=== PATIENT | female | born 1965 | race Caucasian/White ===

== ENCOUNTER 2016-08-24 09:40 | Emergency (ER) | payer OTHER ==
[2016-08-24 09:50] VITALS: TEMP 98; O2SAT 97; BMI 38.7
--- NOTE | 2016-08-24 10:11 | ED PDOC ---
Addendum entered and electronically signed by Rolando Healy PA-C 08/24/16 11:24: Addendum Addendum: 08/24/16 11:24 There was no antihypertensive medication given in the ER. Original Note: Arrival/HPI - General Historian: Patient - General Chief Complaint: Dizziness/Lightheaded Time Seen by Provider: 08/24/16 10:00 - History of Present Illness Narrative History of Present Illness (Text): 08/24/16 10:04 51 y/o female, pmh including dm, nkda, post menopausal, c/o feeling headache and dizziness about 2-3 hours ago. Pt. stated that she doesn't feel well today with headache, admits fatigue, and under the weather. Pt. was at the [employer] and trying to get up, feeling dizziness with room spinning sensation which turn into headache with no fall or trauma. Pt. stated that the dizziness resolved but the rt. lateral headache still remains, no change in vision, no numbness or tingling, no palpitation, no chest pain or shortness of breath, no night sweat, no other medical or psychological complaints. (Rolando Healy) Past Medical History - Provider Review Nursing Documentation Reviewed: Yes - Infectious Disease Hx of Infectious Diseases: None - Reproductive Menopause: Yes - Cardiac Hx Cardiac Disorders: No - Pulmonary Hx Respiratory Disorders: No - Neurological Hx Neurological Disorder: No - Renal Hx Renal Disorder: No - Endocrine/Metabolic Hx Endocrine Disorders: Yes Hx Diabetes Mellitus Type 2: Yes - Hematological/Oncological Hx Blood Disorders: No - Integumentary Hx Dermatological Disorder: No - Musculoskeletal/Rheumatological Hx Musculoskeletal Disorders: No - Gastrointestinal Hx Gastrointestinal Disorders: No - Genitourinary/Gynecological Hx Genitourinary Disorders: Yes Other/Comment: endometriosis. - Psychiatric Hx Psychophysiologic Disorder: No Hx Substance Use: No - Surgical History Hx Dilation and Curettage: Yes (x2) Hx Gastric Bypass Surgery: Yes - Anesthesia Hx Anesthesia: Yes Hx Anesthesia Reactions: No Family/Social History - Physician Review Nursing Documentation Reviewed: Yes Family/Social History: Unknown Family HX Smoking Status: Never Smoked Hx Alcohol Use: No Hx Substance Use: No Allergies/Home Meds Allergies/Adverse Reactions: Allergies No Known Allergies Allergy (Verified 08/24/16 09:45) Home Medications: Home Meds Medication Instructions Recorded Confirmed MetFORMIN [glucoPHAGE] 1,000 mg PO DAILY 08/24/16 08/24/16 Review of Systems - Review of Systems Constitutional: Fatigue. absent: Fevers Eyes: absent: Vision Changes ENT: absent: Hearing Changes Respiratory: absent: SOB, Cough Cardiovascular: absent: Chest Pain Gastrointestinal: absent: Abdominal Pain, Nausea, Vomiting Neurological: Headache, Dizziness. absent: Focal Weakness, Gait Changes, Speech Changes, Facial Droop, Disequilibrium, Seizure Physical Exam Vital Signs Reviewed: Yes Temperature: Afebrile Blood Pressure: Hypertensive Pulse: Regular Respiratory Rate: Normal Appearance: Positive for: Well-Appearing, Non-Toxic, Comfortable Pain Distress: None Mental Status: Positive for: Alert and Oriented X 3 - Systems Exam Head: Present: Atraumatic, Normocephalic. No: Tenderness, Contusion, Swelling, Ecchymosis, Abrasion, Laceration, Other Pupils: Present: PERRL Extroacular Muscles: Present: EOMI Conjunctiva: Present: Normal Ears: Present: NORMAL TM, Normal Canal. No: Erythema Mouth: Present: Moist Mucous Membranes Pharnyx: No: ERYTHEMA, EXUDATE, TONSILS ENLARGED, Uvular Deviation, Soft Palate/ Uvular Edema Neck: Present: Normal Range of Motion, Trachea Midline. No: Meningeal Signs, MIDLINE TENDERNESS, Paraspinal Tenderness, Lymphadenopathy Respiratory/Chest: Present: Clear to Auscultation, Good Air Exchange. No: Respiratory Distress, Accessory Muscle Use, Wheezes, Decreased Breath Sounds, Rales, Retracting, Rhonchi, Tachypneic, Tender to Palpation, Other Cardiovascular: Present: Regular Rate and Rhythm, Normal S1, S2. No: Murmurs Abdomen: Present: Normal Bowel Sounds. No: Tenderness, Distention, Peritoneal Signs, Rebound, Guarding Back: Present: Normal Inspection Upper Extremity: Present: Normal Inspection. No: Cyanosis, Edema Lower Extremity: Present: Normal Inspection. No: Edema Neurological: Present: GCS=15, CN II-XII Intact, Speech Normal, Motor Func Grossly Intact, Gait Normal, Memory Normal, Other (no drift, normal finger to nose test, normal gait and posture, no focal neurological deficits, no drift. ) Skin: Present: Warm, Dry, Normal Color. No: Rashes Psychiatric: Present: Alert, Oriented x 3, Normal Insight, Normal Concentration Medical Decision Making - Lab Interpretations I have reviewed the lab results: Yes Interpretation: Abnormal lab values (+UTI and +yeast) - RAD Interpretation Accounting Auditor: Radiologist - EKG Interpretation Interpreted by ED Physician: Yes Type: 12 lead EKG Comparison: No previous EKG avail. ED Course and Treatment: 08/24/16 10:05 -labs -CT head -IVF/reglan -Observe and reassess 08/24/16 11:15 -EKG: NSR @ 74 BPM, no St elevation or depression, no T wave inversion. -CT Head: no acute intracranial pathology identified. -Labs are non-significant -UA show +UTI and +Yeast, Diflucan 150mg po ordered. -Labs and radiology results reviewed with the patient. -Pt. feels completely relief with headache resolved after the IV reglan and IVF , no dizziness, walking with normal gait and posture, no slurred speech. -Discharge home with macrobid, meclizine, stay hydrated, bed rest, no gym or exercise until clear by your own pmd, follow your with your own pmd and neurologist within 2 days, return to the ER for any new or worsening signs or symptoms. (Rolando Healy) I was available for consultation during PA evaluation. The chart was reviewed by me, and I agree with disposition. The documented history was done by the physician penal officer. The documented physical exam was done by the physician penal officer. The documented procedures were done by the physician penal officer. (Dougie Saucedo) - Lab Interpretations Lab Results: 08/24/16 10:38 08/24/16 10:38 Lab Results 08/24/16 10:42: Urine Color Yellow, Urine Appearance Clear, Urine pH 6.0, Ur Specific [place] 1.010, Urine Protein Negative, Urine Glucose (UA) Negative, Urine Ketones Negative, Urine Blood Negative, Urine Nitrate Positive H, Urine Bilirubin Negative, Urine Urobilinogen 0.2, Ur Leukocyte Esterase Negative, Urine RBC 0 - 2, Urine WBC 0 - 2, Ur Epithelial Cells 1 - 3, Amorphous Sediment Few, Urine Bacteria Many, Urine Other Uyeast 08/24/16 10:38: Sodium 140, Potassium 4.3, Chloride 104, Carbon Dioxide 30, Anion Gap 10, BUN 10, Creatinine 0.6, Est GFR ( Amer) > 60, Est GFR (Non- Af Amer) > 60, Random Glucose 106, Calcium 9.6, Total Bilirubin 0.3, AST 36, ALT 40, Alkaline Phosphatase 67, Total Protein 7.6, Albumin 4.2, Globulin 3.4, Albumin/Globulin Ratio 1.2 08/24/16 10:38: WBC 4.6 D, RBC 4.27, Hgb 11.2 L, Hct 35.7 L, MCV 83.6, MCH 26.2 , MCHC 31.4, RDW 15.1 H, Plt Count 258, MPV 9.8, Gran % 55.6, Lymph % (Auto) 35.8 H, [place] % (Auto) 6.3 H, Eos % (Auto) 1.7, Baso % (Auto) 0.6, Gran # 2.58, Lymph # 1.7, [place] # 0.3, Eos # 0.1, Baso # 0.03 08/24/16 10:31: POC Glucose (mg/dL) 111 H - RAD Interpretation Radiology Orders: 08/24/16 10:12 HEAD W/O CONTRAST [CT] Stat NO acute intracranial pathology identified. (Rolando Healy) - EKG Interpretation EKG Interpretation (Text): 08/24/16 10:31 NSR @ 74 BPM, no St elevation or depression, no T wave inversion. (Rolando Healy) - Medication Orders Current Medication Orders: Discontinued Medications Fluconazole (Diflucan) 150 mg PO DAILY KHADAR PRN Reason: Protocol Last Admin: 08/24/16 11:36 Dose: 150 mg Sodium Chloride (Sodium Chloride 0.9%) 1,000 mls @ 250 mls/hr IV .Q4H STA Stop: 08/24/16 14:11 Last Admin: 08/24/16 10:29 Dose: 250 mls/hr Metoclopramide HCl (Reglan) 10 mg IVP STAT STA Stop: 08/24/16 10:13 Last Admin: 08/24/16 10:29 Dose: 10 mg - PA / [employer] SUPERVISOR / Resident Statement /DO has reviewed & agrees with the documentation as recorded. Disposition/Present on Arrival - Present on Arrival Any Indicators Present on Arrival: No History of DVT/PE: No History of Uncontrolled Diabetes: No Urinary Catheter: No History of Decub. Ulcer: No History Surgical Site Infection Following: None - Disposition Have Diagnosis and Disposition been Completed?: Yes Disposition Time: 11:09 Patient Plan: Discharge - Disposition Diagnosis: Fatigue, UTI (urinary tract infection), Yeast infection Disposition: HOME/ ROUTINE Condition: GOOD Additional Instructions: Discharge home with macrobid, meclizine, stay hydrated, bed rest, no gym or exercise until clear by your own pmd, follow your with your own pmd and neurologist within 2 days, return to the ER for any new or worsening signs or symptoms. Prescriptions: Meclizine [Meclizine*] 25 mg PO Q6 PRN #30 tab PRN Reason: Other Nitrofurantoin Macrocrystals [Macrobid] 100 mg PO BID #14 cap Referrals: PCP,JESSICA [Primary Care Provider] - Follow up with primary Orlando Edge MD [Staff Provider] - Follow up with primary Christoph Ghosh MD [Staff Provider] - Follow up with primary Forms: WORK NOTE
[2016-08-24] MEDS ORDERED: Sodium Chloride 0.9% 1,000 ML IV STA (10:12)
[2016-08-24 10:39] LABS: ADD MANUAL DIFF? NO
[2016-08-24 10:45] LABS: BASO # 0.03 K/mm3 (0.0-2.0); BASO % 0.6 % (0.0-3.0); EOS # 0.1 (0.0-0.7); EOS % 1.7 % (1.5-5.0); GRAN # 2.58 (1.4-6.5); GRAN % 55.6 % (50.0-68.0); HEMATOCRIT 35.7 % (36.0-48.0); LYMPH # 1.7 (1.2-3.4); LYMPH % 35.8 % (22.0-35.0); MEAN CELL VOLUME 83.6 fL (80.0-105.0); MEAN CORPUSCULAR HEMOGLOBIN 26.2 pg (25.0-35.0); MEAN CORPUSCULAR HGB CONC 31.4 g/dl (31.0-37.0); MEAN PLATELET VOLUME 9.8 fl (7.0-11.0); MONO # 0.3 (0.1-0.6); MONO % 6.3 % (1.0-6.0); PLATELET COUNT 258 10^3/uL (120.0-450.0); RED CELL DISTRIBUTION WIDTH 15.1 % (11.5-14.5); WHITE BLOOD COUNT 4.6 10^3/ul (4.5-11.0)
[2016-08-24 10:47] LABS: URINE BILIRUBIN NEGATIVE (NEGATIVE); URINE BLOOD NEGATIVE (NEGATIVE); URINE GLUCOSE (UA) NEGATIVE (NEGATIVE); URINE KETONE NEGATIVE (NEGATIVE); URINE LEUKOCYTE ESTERASE NEGATIVE Leu/uL (NEGATIVE); URINE PROTEIN NEGATIVE mg/dL (<30 mg/dL); URINE UROBILINOGEN 0.2 E.U./dL (<1 E.U./dL)
[2016-08-24 10:48] LABS: URINE APPEARANCE CLEAR (CLEAR); URINE COLOR YELLOW (YELLOW)
[2016-08-24 10:51] LABS: ALB/GLOB RATIO 1.2 (1.1-1.8); ALKALINE PHOSPHATASE 67 U/L (38-133); ALT/SGPT 40 U/L (7-56); AST/SGOT 36 U/L (15-39); BILIRUBIN,TOTAL 0.3 mg/dL (0.2-1.3); BLOOD UREA NITROGEN 10 mg/dL (7-21); CALCIUM 9.6 mg/dL (8.4-10.5); CARBON DIOXIDE 30 mmol/L (21-33); CHLORIDE 104 mmol/L (98-107); GFR AFRICAN-AMERICAN > 60; GLUCOSE,RANDOM 106 mg/dL (70-110); POTASSIUM 4.3 mmol/L (3.6-5.0); SODIUM 140 mmol/L (132-148); TOTAL PROTEIN 7.6 g/dL (5.8-8.3)
[2016-08-24 10:52] LABS: URINE AMORPHOUS SEDIMENT FEW; URINE BACTERIA MANY (NEG); URINE RBC 0 - 2 /hpf (0-2); URINE WBC 0 - 2 /hpf (0-6)
--- NOTE | 2016-08-24 11:05 | CT ---
PROCEDURE: CT HEAD WITHOUT CONTRAST. HISTORY: headache and dizziness COMPARISON: None available. TECHNIQUE: Axial computed tomography images were obtained through the head/brain without intravenous contrast. Radiation dose: Total exam DLP = 774.23 mGy-cm. This CT exam was performed using one or more of the following dose reduction techniques: Automated exposure control, adjustment of the mA and/or kV according to patient size, and/or use of iterative reconstruction technique. FINDINGS: HEMORRHAGE: No intracranial hemorrhage. BRAIN: No mass effect or edema. The roberts-white matter differentiation appears intact. Please note that MRI with diffusion imaging is more sensitive in the detection of acute ischemic event. VENTRICLES: No hydrocephalus. CALVARIUM: Unremarkable. PARANASAL SINUSES: Unremarkable as visualized. No significant inflammatory changes. MASTOID AIR CELLS: Unremarkable as visualized. No inflammatory changes. OTHER FINDINGS: None. IMPRESSION: No acute intracranial pathology identified.
[2016-08-24 11:07] VITALS: BP 134/73; PULSE 74; RESP 16
--- NOTE | 2016-08-24 21:55 | CARD ---
APPROVED REPORT EKG Measurement Heart [id number] <Conclusion> Normal sinus rhythm Normal ECG
== END 2016-08-24 11:41 | disposition home or self-care (01) ==
LOC: ED 09:40
DX: N39.0 Urinary tract infection, site not specified (principal); B37.9 Candidiasis, unspecified; R53.83 Other fatigue
CPT/HCPCS: 70450; 80053; 81001; 82948; 85025; 87086; 93005; 96374; 99285; J2765; J7040

== ENCOUNTER 2016-08-30 11:38 | Emergency (ER) | payer OTHER ==
[2016-08-30 11:56] VITALS: TEMP 100; BMI 37.5
[2016-08-30] MEDS ORDERED: guaiFENesin-Codeine 100-10mg/5ml Syrup (5 ml) UD PO STA (12:10)
[2016-08-30] MEDS ORDERED: Levalbuterol 1.25 MG/3 ML Inhal Soln UD IH STA (12:10)
--- NOTE | 2016-08-30 12:41 | ED PDOC ---
Arrival/HPI - General Chief Complaint: ENT Problem Time Seen by Provider: 08/30/16 11:52 Historian: Patient - History of Present Illness Narrative History of Present Illness (Text): 08/30/16 12:41 A 51 year old female, whose past medical history includes diabetes, presents to the emergency department complaining of a cough since yesterday and headache that developed today. The headache was a slow onset headache that has worsened over the morning. It is worse with the cough. No focal weakness. No dizziness. Patient notes some diarrhea yesterday and a sore throat that is worse with coughing, but denies any vomiting, fever, abdominal pain, dysuria or any other complaints at this time. Denies smoking. Time/Duration: Other (yesterday, today) Symptom Onset: Sudden Symptom Course: Unchanged Activities at Onset: Rest Context: Home Past Medical History - Provider Review Nursing Documentation Reviewed: Yes - Infectious Disease Hx of Infectious Diseases: None - Reproductive Menopause: Yes - Cardiac Hx Cardiac Disorders: No - Pulmonary Hx Respiratory Disorders: No - Neurological Hx Neurological Disorder: No - Renal Hx Renal Disorder: No - Endocrine/Metabolic Hx Endocrine Disorders: Yes Hx Diabetes Mellitus Type 2: Yes - Hematological/Oncological Hx Blood Disorders: No - Integumentary Hx Dermatological Disorder: No - Musculoskeletal/Rheumatological Hx Musculoskeletal Disorders: No - Gastrointestinal Hx Gastrointestinal Disorders: No - Genitourinary/Gynecological Hx Genitourinary Disorders: Yes Other/Comment: endometriosis. - Psychiatric Hx Psychophysiologic Disorder: No Hx Substance Use: No - Surgical History Hx Dilation and Curettage: Yes (x2) Hx Gastric Bypass Surgery: Yes - Anesthesia Hx Anesthesia: Yes Hx Anesthesia Reactions: No Family/Social History - Physician Review Nursing Documentation Reviewed: Yes Family/Social History: No Known Family HX Smoking Status: Never Smoked Hx Alcohol Use: No Hx Substance Use: No Allergies/Home Meds Allergies/Adverse Reactions: Allergies No Known Allergies Allergy (Verified 08/30/16 11:56) Home Medications: Home Meds Medication Instructions Recorded Confirmed MetFORMIN [glucoPHAGE] 1,000 mg PO DAILY 08/24/16 08/30/16 Review of Systems - Physician Review All systems were reviewed & negative as marked: Yes - Review of Systems Constitutional: absent: Fevers Eyes: absent: Vision Changes ENT: Sore Throat Respiratory: Cough Gastrointestinal: Diarrhea. absent: Abdominal Pain, Vomiting Genitourinary Female: absent: Dysuria Neurological: Headache Physical Exam Vital Signs Reviewed: Yes Vital Signs Temp Pulse Resp BP Pulse Ox 08/30/16 12:35 89 18 117/79 98 08/30/16 11:53 100 F H 99 H 18 115/86 99 08/30/16 11:38 99.7 F H Temperature: Afebrile Blood Pressure: Normal Pulse: Regular Respiratory Rate: Normal Appearance: Positive for: Well-Appearing, Non-Toxic, Comfortable Pain Distress: None Mental Status: Positive for: Alert and Oriented X 3 - Systems Exam Head: Present: Atraumatic, Normocephalic Pupils: Present: PERRL, Other (trigem) Extroacular Muscles: Present: EOMI Conjunctiva: Present: Normal Ears: Present: Normal, NORMAL TM Mouth: Present: Moist Mucous Membranes Pharnyx: Present: Normal. No: ERYTHEMA, EXUDATE, Uvular Deviation Neck: Present: Normal Range of Motion Respiratory/Chest: Present: Clear to Auscultation, Good Air Exchange. No: Respiratory Distress, Accessory Muscle Use Cardiovascular: Present: Regular Rate and Rhythm, Normal S1, S2. No: Murmurs Abdomen: Present: Normal Bowel Sounds. No: Tenderness, Distention, Peritoneal Signs Back: Present: Normal Inspection Upper Extremity: Present: Normal Inspection. No: Cyanosis, Edema Lower Extremity: Present: Normal Inspection. No: Edema Neurological: Present: GCS=15, CN II-XII Intact, Speech Normal Skin: Present: Warm, Dry, Normal Color. No: Rashes Psychiatric: Present: Alert, Oriented x 3, Normal Insight, Normal Concentration Medical Decision Making ED Course and Treatment: 08/30/16 12:38 Impression: A 51 year old female with cough and headache. Differential Diagnosis included but are not limited to: Bronchitis vs pneumonia vs URI Plan: -- chest xray -- Robitussin, Toradol, Xopenex -- Reassess and disposition Prior Visits: Notes and results from previous visits were reviewed. Patient last reported to the emergency department on 08/24/16 for evaluation of headache and dizziness. Progress Notes: 08/30/16 13:21 Patient with noted history; she just had an unremarkable brain CT and blood work just done 6 days ago with no cardiac complaints. Patient has a history of hospitalization for asthmatic bronchitis, so will start on abx for the bronchitis and given her robitussin AC. She was given toradol, a neb and Robitussin AC and feels better in the ED. - RAD Interpretation Radiology Orders: 08/30/16 12:03 CHEST TWO VIEWS (PA/LAT) [RAD] Stat - Medication Orders Current Medication Orders: Discontinued Medications Guaifenesin/Codeine Phosphate (Robitussin W/Codeine) 10 ml PO ONCE STA Stop: 08/30/16 12:11 Last Admin: 08/30/16 12:26 Dose: 10 ml Ketorolac Tromethamine (Toradol) 60 mg IM STAT STA Stop: 08/30/16 12:10 Last Admin: 08/30/16 12:26 Dose: 60 mg Levalbuterol HCl (Xopenex) 1.25 mg IH STAT STA Stop: 08/30/16 12:11 Last Admin: 08/30/16 12:26 Dose: 1.25 mg - Scribe Statement The provider has reviewed the documentation as recorded by the Capo Kapoor Provider Scribe Attestation: All medical record entries made by the Shivaibgrady were at my direction and personally dictated by me. I have reviewed the chart and agree that the record accurately reflects my personal performance of the history, physical exam, medical decision making, and the department course for this patient. I have also personally directed, reviewed, and agree with the discharge instructions and disposition. Disposition/Present on Arrival - Present on Arrival Any Indicators Present on Arrival: No History of DVT/PE: No History of Uncontrolled Diabetes: No Urinary Catheter: No History of Decub. Ulcer: No History Surgical Site Infection Following: None - Disposition Have Diagnosis and Disposition been Completed?: Yes Diagnosis: Bronchitis, Headache Disposition: HOME/ ROUTINE Disposition Time: 13:25 Patient Plan: Discharge Condition: GOOD Discharge Instructions (ExitCare): Acute Bronchitis (ED) Print Language: CENTRAL AFRICAN Additional Instructions: Take the medications as prescribed. Follow up with your primary care doctor. Return to the emergency department if any new concerning symptoms. Prescriptions: Azithromycin [Zithromax] 2 tab PO DAILY #6 tab guaiFENesin/Codeine [Codeine/Guaifenesin 10 MG/5 Ml-100 MG/5 Ml 5] 2 tsp PO Q6H PRN #120 ml PRN Reason: Cough Naproxen [Naprosyn] 500 mg PO BID PRN #14 tab PRN Reason: Pain Referrals: Lenora Rojas MD [Primary Care Provider] - Follow up with primary
--- NOTE | 2016-08-30 13:17 | RAD ---
HISTORY: cough COMPARISON: No prior. TECHNIQUE: Chest PA and lateral FINDINGS: LUNGS: No active pulmonary disease. PLEURA: No significant pleural effusion identified. No pneumothorax apparent. CARDIOVASCULAR: Normal. OSSEOUS STRUCTURES: No significant abnormalities. VISUALIZED UPPER ABDOMEN: Normal. OTHER FINDINGS: None. IMPRESSION: No active disease.
[2016-08-30 13:52] VITALS: BP 119/82; PULSE 84; RESP 16; O2SAT 99
== END 2016-08-30 13:52 | disposition home or self-care (01) ==
LOC: ED 11:38
DX: J40 Bronchitis, not specified as acute or chronic (principal); R51 Headache
CPT/HCPCS: 71020; 96372; 99284; J1885

== ENCOUNTER 2018-04-17 08:07 | Outpatient (CLI) | payer OTHER | END 2018-04-17 08:08 | disposition home or self-care (01) | LOC: LAB 08:07 ==